=== PATIENT | female | born 1995 | race Caucasian/White ===

== ENCOUNTER → 2023-05-28 06:34 | Day surgery (SDC) | payer MEDICARE, OTHER, SELFPAY ==
[2023-05-28 12:09] VITALS: BMI 58.0
[2023-05-28 12:15] VITALS: BP 144/102
[2023-05-28 14:16] VITALS: BP 152/88
[2023-05-28 14:30] VITALS: BP 147/92
[2023-05-28 14:45] VITALS: BP 148/91
== END ==
LOC: SDS 06:34
PROVIDERS: ATTENDING PHYSICIAN Internal Medicine Gastroenterology
DX: D50.0 Iron deficiency anemia secondary to blood loss (chronic) (principal); K64.0 First degree hemorrhoids; K22.89 Other specified disease of esophagus; K29.50 Unspecified chronic gastritis without bleeding
CPT/HCPCS: 45378; 43239; 88305; 88342

== ENCOUNTER 2023-06-03 10:46 | Emergency (ER) | payer MEDICARE, OTHER, SELFPAY ==
[2023-06-03 11:02] VITALS: BP 169/109
[2023-06-03 11:46] LABS: % Basophils 0.5 % (0-2); % Eosinophils 3.5 % (0-6); % Immature Granulocytes 0.7 % (0-0.5); % Lymphocytes 25.9 % (20.5-51.1); % Monocytes 6.1 % (1.7-9.3); % Neutrophils 63.3 % (42.2-75.2); Absolute Basophils 0.1 10^3/uL (0-0.2); Absolute Eosinophils 0.4 10^3/uL (0-0.7); Absolute Immature Granulocytes 0.1 10^3/uL (0-0.05); Absolute Lymphocytes 2.9 10^3/uL (1.2-3.4); Absolute Monocytes 0.7 10^3/uL (0.1-0.6); Absolute Neutrophils 7.2 10^3/uL (1.4-6.5); Hemoglobin 13.4 g/dL (12.0-16.0); Mean Corp Hgb Conc. 31.9 g/dL (33.0-37.0); Mean Corpuscular Hgb 26.9 pg (27.0-31.0); Mean Corpuscular Volume 84.3 fL (81.0-99.0); Mean Platelet Volume 9.2 fL (7.4-10.4); Nucleated Red Blood Cells % 0 %; Platelet Count 306 10^3/uL (130-400); Red Blood Cell Count 4.98 10^6/uL (4.20-5.40); Red Cell Dist. Width 15.3 % (11.5-14.5); White Blood Cell Count 11.3 10^3/uL (4.8-10.8)
[2023-06-03 12:07] LABS: ALT (SGPT) 83 U/L (0-35); AST (SGOT) 53 U/L (14-36); Albumin 4.5 g/dl (3.5-5.0); Alkaline Phosphatase 88 U/L (38-126); Blood Urea Nitrogen 9 mg/dl (7-17); Calcium 9.4 mg/dl (8.4-10.2); Carbon Dioxide 28 mmol/L (22-30); Chloride 105 mmol/L (98-107); Glucose 87 mg/dl (70-99); Potassium 3.9 mmol/L (3.5-5.1); Sodium 139 mmol/L (135-145); Total Bilirubin 0.6 mg/dl (0.2-1.3); Total Protein 7.5 g/dl (6.3-8.2); eGFR > 60.00
[2023-06-03 12:28] VITALS: BMI 59.8
[2023-06-03 12:30] VITALS: BP 127/71
--- NOTE | 2023-06-03 12:32 | ED.GENMED ---
History of Present Illness
General
Chief Complaint: Abdominal Symptoms
Source: patient and family
Exam Limitations: none
Time Seen by Provider: 06/03/23 12:11
Travel History
Have you had any contact with someone who has COVID-19?: No
Do you have any symptoms of coronavirus? Fever > 100 degrees, chills, cough, shortness of breath, sore throat, loss of taste or smell, muscle aches, or headache?: No
History of Present Illness
History of Present Illness:
27-year-old female with a history of bipolar disorder who presents for right upper quadrant pain that started the day after her recent colonoscopy. Patient states she has had pain since Thursday. Pain has persisted and she called her primary care
doctor who advised her to call her GI doctor. GI recommended her to come here for evaluation. Patient reports pain is worse when she lays back. No vomiting. No fevers.
Past History
Past History
ED Past Medical History: Psychiatric (Bipolar disorder) and Other (Overdose, PTSD, Schizoaffective disorder, ADHD); Negative Asthma, HTN or NIDDM
ED Past Surgical History: Appendectomy and Orthopedic (ACL repair,)
Social History
Tobacco: Non-smoker
Alcohol: None
Drug: None
Personal: Single
Living: alone
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
Family History
Family History: Adopted
Phy Exam
Physical Exam
Physical Exam:
CONSTITUTIONAL Patient alert and oriented to person, place and time. Well-appearing. Vital signs reviewed. Obese
HEAD atraumatic, normocephalic.
EYES eyelids normal to inspection, Pupils equally round and reactive to light, Extraocular muscles intact, Conjunctiva normal, Sclera normal.
NECK normal range of motion, Trachea midline, no jugular venous distention.
RESPIRATORY CHEST No respiratory distress noted, Chest expansion equal, Bilateral breath sounds clear.
CARDIOVASCULAR regular rate and rhythm, Heart sounds normal.
ABDOMEN mild tenderness tenderness, Bowel sounds normal. No distention.
BACK normal inspection, no obvious deformities
UPPER EXTREMITY range of motion normal, Motor strength normal, no cyanosis, no edema.
LOWER EXTREMITY range of motion normal, Motor strength normal, no cyanosis, no edema.
NEURO Speech normal, No focal motor deficits, [place] coma scale 15, Memory normal, Cranial Nerves intact to screening exam.
SKIN skin warm, dry, and normal in color.
PSYCHIATRIC patient oriented to person place and time, flat affect
Course
Orders/Labs/Results
Orders:
Orders
06/03/23 11:38
Complete Blood Count/With Diff Urgent
Comprehensive Metabolic Panel Urgent
HCG, Serum Qualitative Screen Urgent
Comment: ADD ON
Lipase Urgent
Comment: ADD ON
06/03/23 12:32
Add On- LAB Urgent
Tests Added?: lipase
CT Abd/Pel (IV only)-DH only Urgent
Comment:
Reason For Exam: RUQ pain after colonoscopy
06/03/23 12:42
Add On- LAB Stat
Tests Added?: qual HCG
Abnormal Lab Results
06/03/23
11:38
WBC 11.3 H 10^3/uL
(4.8-10.8)
MCH 26.9 L pg
(27.0-31.0)
MCHC 31.9 L g/dL
(33.0-37.0)
RDW 15.3 H %
(11.5-14.5)
Abs Immat Gran (auto) 0.1 H 10^3/uL
(0-0.05)
Absolute Neuts (auto) 7.2 H 10^3/uL
(1.4-6.5)
Absolute Monos (auto) 0.7 H 10^3/uL
(0.1-0.6)
Immature Gran % 0.7 H %
(0-0.5)
Creatinine 0.5 L mg/dL
(0.6-1.0)
AST 53 H U/L
(14-36)
ALT 83 H U/L
(0-35)
06/03/23 11:38
06/03/23 11:38
Vital Signs
Initial and Last Documented VS:
Initial Vital Signs
Temp Pulse Resp BP Pulse Ox
97.8 F 87 16 169/109 98
06/03/23 11:02 06/03/23 11:02 06/03/23 11:02 06/03/23 11:02 06/03/23 11:02
Last Documented Vital Signs
Temp Pulse Resp BP Pulse Ox
97.8 F 87 16 127/71 97
06/03/23 11:02 06/03/23 11:02 06/03/23 11:02 06/03/23 12:30 06/03/23 13:15
MDM/Problems Addressed
MDM/Problems Addressed:
Abdominal pain
*Radiology
Radiology exam reviewed: preliminary read by ED provider (No gross free air) and radiology read reviewed
*Pulse Oximetry
Patient hypoxic: no
*Critical Care Note
Total Time (30-74mins, 75-104mins- exclusive of procedures): Not Applicable
Data Reviewed
Source: patient
Further Testing Considered But Not Given:
Consider right upper quadrant ultrasound CT negative.
Patient Management
Escalation/DeEscalation of care consider admission/obs:
CT negative for hepatic injury, perforation or spleen injury. I do feel she is safe for discharge and follow-up with GI. No gallstones noted by CT. If symptoms persist as outpatient, they could consider right upper quadrant ultrasound.
ED Attending Note
-
Portions of this chart may have been created with voice recognition software.� Occasional wrong word or��sound alike� substitutions may have occurred due to the inherent limitations of voice recognition software.
Discharge Plan
Departure
Patient Disposition: Home (Routine Discharge)
Date of Disposition: 06/03/23
Time of Disposition: 14:17
Patient with high blood pressure during this ER visit?: No
Discharge Problem:
Abdominal pain
Instructions: Abdominal Pain
Prescriptions:
No Action
prazosin 1 MG capsule
5 mg PO BID
Patient Comments:
pt does not remember mg
felodipine 5 mg Tablet Extended Release 24 Hr
5 mg PO DAILY
lamotrigine [Lamictal XR] 25 mg Tablet Extended Release 24hr
75 mg PO DAILY
clonazepam [Klonopin] 1 mg Tablet
1 mg PO BID
trazodone 100 mg Tablet
200 mg PO HS
lithium carbonate 600 mg Capsule
600 mg PO .QAM
lithium carbonate 600 mg Capsule
900 mg PO HS
gabapentin 100 mg Capsule
600 mg PO TID
paliperidone [Invega] 6 mg Tablet Extended Release 24 Hr
12 mg PO QPM
metoprolol succinate 100 mg Capsule,Sprinkle,Er 24hr
75 mg PO HS
Referrals:
Jennifer Frye DO [Family Provider] -
Activity Restrictions/Additional Instructions:
Please see your doctor and/or GI doctor in the next 3 to 5 days for follow-up and reevaluation. Return immediately for intractable or worsening pain, vomiting, fevers or any other concerns. If your symptoms persist, an outpatient ultrasound of
your gallbladder may be necessary
Interventions
Interventions:
*Risk Screen - Suicide Last Done: 06/03/23 12:20
*General Assessment Last Done: 06/03/23 12:28
*Neglect/Abuse Screening Last Done: 06/03/23 12:20
ED- Fall Risk Assessment Last Done: 06/03/23 12:20
*ED COVID-19 Vaccine History Last Done: 06/03/23 11:02
XO-Qqouqk-Jgmaulgnpf Assessment Last Done: 06/03/23 12:20
[2023-06-03 12:58] LABS: Lipase 86 U/L (23-300)
[2023-06-03 13:18] LABS: HCG, Serum Qualitative Screen Negative
== END 2023-06-03 14:49 | disposition home or self-care (01) ==
LOC: EMR 10:46
PROVIDERS: Emergency Medicine; EMERGENCY PHYSICIAN Emergency Medicine; FAMILY PHYSICIAN Family Medicine
DX: R10.9 Unspecified abdominal pain (principal); R10.11 Right upper quadrant pain
CPT/HCPCS: 99284; 74177; 80053; 83690; 84703; 85025; Q9967

== ENCOUNTER → 2023-11-11 14:25 | Outpatient (REF) | payer MEDICARE, OTHER, SELFPAY | LOC: RAD 14:25 | PROVIDERS: ATTENDING PHYSICIAN Family Medicine | DX: M54.10 Radiculopathy, site unspecified (principal) | CPT/HCPCS: 72110 ==

== ENCOUNTER 2023-12-03 12:46 | Emergency (ER) | payer MEDICARE, OTHER, SELFPAY ==
[2023-12-03 12:52] VITALS: BP 185/117
[2023-12-03 13:14] LABS: % Basophils 0.7 % (0-2); % Eosinophils 3.1 % (0-6); % Immature Granulocytes 0.4 % (0-0.5); % Lymphocytes 23.5 % (20.5-51.1); % Monocytes 6.5 % (1.7-9.3); % Neutrophils 65.8 % (42.2-75.2); Absolute Basophils 0.1 10^3/uL (0-0.2); Absolute Eosinophils 0.3 10^3/uL (0-0.7); Absolute Lymphocytes 2.1 10^3/uL (1.2-3.4); Absolute Monocytes 0.6 10^3/uL (0.1-0.6); Absolute Neutrophils 5.9 10^3/uL (1.4-6.5); Hematocrit 40.4 % (37.0-47.0); Hemoglobin 13.7 g/dL (12.0-16.0); Mean Corp Hgb Conc. 33.9 g/dL (33.0-37.0); Mean Corpuscular Hgb 29.6 pg (27.0-31.0); Mean Corpuscular Volume 87.3 fL (81.0-99.0); Mean Platelet Volume 9.1 fL (7.4-10.4); Nucleated Red Blood Cells % 0 %; Platelet Count 301 10^3/uL (130-400); Red Blood Cell Count 4.63 10^6/uL (4.20-5.40); Red Cell Dist. Width 12.6 % (11.5-14.5); White Blood Cell Count 8.9 10^3/uL (4.8-10.8)
[2023-12-03 13:23] LABS: INR 1.03; PT 13.5 Sec (11.4-14.6)
[2023-12-03 13:32] LABS: HCG, Serum Qualitative Screen Negative
[2023-12-03 13:37] LABS: ALT (SGPT) 140 U/L (0-35); AST (SGOT) 89 U/L (14-36); Albumin 4.7 g/dl (3.5-5.0); Alkaline Phosphatase 83 U/L (38-126); Blood Urea Nitrogen 9 mg/dl (7-17); Calcium 10.2 mg/dl (8.4-10.2); Carbon Dioxide 25 mmol/L (22-30); Chloride 103 mmol/L (98-107); Glucose 124 mg/dl (70-99); Potassium 3.9 mmol/L (3.5-5.1); Sodium 141 mmol/L (135-145); Total Bilirubin 0.8 mg/dl (0.2-1.3); Total Protein 7.3 g/dl (6.3-8.2); eGFR > 60.00
[2023-12-03 13:46] LABS: Troponin I 0.013 ng/ml
[2023-12-03 14:35] VITALS: BMI 60.7
[2023-12-03 14:36] VITALS: BP 155/102
[2023-12-03 15:00] VITALS: BP 152/95
--- NOTE | 2023-12-03 15:12 | ED.GENMED ---
History of Present Illness
<Lidya Moya PA-C - Last Filed: 12/03/23 20:26>
General
Chief Complaint: Chest Pain
Source: patient
Exam Limitations: none
Time Seen by Provider: 12/03/23 15:11
Nursing documentation reviewed up to this point in time: agreed with
History of Present Illness
History of Present Illness:
28-year-old female with a past medical history of PTSD, anxiety, depression, hypothyroidism, hypertension presenting to the emergency department today with concerns of bilateral chest pain. This started yesterday. Patient states that she noticed
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 Patient states that since then, the pain is elicited by movement. The pain is nonpleuritic. Currently at rest, she has no pain. She denies shortness of breath, palpitations, dizziness,
lightheadedness. Patient states that she has a history of a high heart rate and she states that her audit practice intern will frequently adjust her doses of metoprolol. Patient states that she has a history of high blood pressure and is managed on
amlodipine, metoprolol, clonidine. Patient also recently had a liver biopsy 4 days ago and father believes that this may be attributing to her symptoms. Patient denies abdominal pain, lower leg swelling, calf pain, erythema. Patient denies any
use of exogenous estrogen.
Past History
<NATI Garcia Last Filed: 12/03/23 20:26>
Past History
ED Past Medical History: Psychiatric (Bipolar disorder) and Other (Overdose, PTSD, Schizoaffective disorder, ADHD); Negative Asthma, HTN or NIDDM
ED Past Surgical History: Appendectomy and Orthopedic (ACL repair,)
Social History
Tobacco: Non-smoker
Alcohol: None
Drug: None
Personal: Single
Living: alone
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
Family History
Family History: Adopted
Review of Systems
<Lidya Moya PA-C - Last Filed: 12/03/23 20:26>
Review of Systems
All Other Systems: ROS reviewed and negative except as documented in HPI and ROS
Phy Exam
<Lidya Moya PA-C - Last Filed: 12/03/23 20:26>
Physical Exam
Physical Exam:
General: Patient is well appearing and in no acute distress; non-toxic
Skin: Warm and dry, no rashes or lesions
Head: Normocephalic, atraumatic
Eyes: Sclera non-icteric. EOMs intact. PERRLA.
Cardiac: Regular rate and rhythm, no murmurs. No tenderness palpation of external chest wall. No palpable crepitus.
Peripheral Vascular: No lower extremity swelling or edema, no erythema.
Pulm: Normal respiratory effort, no wheezes, rales, rhonchi.
Abdomen: No abdominal tenderness to palpation
Neuro: CN II-XII intact, no focal neurologic deficits.
Psychiatric: Appropriate mood and affect.
Scores
<Lidya Moya PA-C - Last Filed: 12/03/23 20:26>
Heart Score for Chest Pain Patients
STEMI patient?: No
History: Slightly or Non-Suspicious
ECG: Normal
Age: </= 45 years
Risk Factors: 1 or 2 Risk Factors
Troponin: </= Normal Limit
Heart Score for Chest Pain Patients: 1
Heart Score Risk: 2.5% MACE over next 6 weeks
PERC Rule Criteria
Age <50 years: Yes
HR <100 bpm: No
Room air oxygen sat >94%: Yes
History of DVT or PE: No
Recent trauma or surgery: No
Hemoptysis: No
Exogenous estrogen: No
Clinical signs suggestive of DVT: No
: No
Considered low risk for PE: Yes
PERC Score: 1
PE can be excluded by PERC: No
<Sahra Rayo DO - Last Filed: 12/03/23 17:00>
PERC Rule Criteria
PERC Score: 1
PE can be excluded by PERC: No
Course
<Lidya Moya PA-C - Last Filed: 12/03/23 20:26>
Orders/Labs/Results
Orders:
Orders
12/03/23 12:48
Electrocardiogram (*1) Urgent
Reason for Study: Chest Pain
EKG- Treatment ONCE
12/03/23 12:56
Test Result ONCE
12/03/23 13:03
Complete Blood Count/With Diff Urgent
Comprehensive Metabolic Panel Urgent
HCG, Serum Qualitative Screen Urgent
Prothrombin Time Urgent
TSH Reflex To Free T4 Urgent
Comment: TSH REFLEX ADDED ON BY FLOOR 3:10PM 12-03-23
Troponin I Urgent
12/03/23 15:12
Add On- LAB Urgent
Tests Added?: TSH reflex T4
12/03/23 15:51
Electrocardiogram (*1) Urgent
Reason for Study: Tachycardia
EKG- Treatment ONCE
Abnormal Lab Results
12/03/23
13:03
Glucose 124 H mg/dl
(70-99)
AST 89 H U/L
(14-36)
ALT 140 H U/L
(0-35)
12/03/23 13:03
12/03/23 13:03
Vital Signs
Initial and Last Documented VS:
Initial Vital Signs
Temp Pulse Resp BP Pulse Ox
99.1 F 116 18 185/117 98
12/03/23 12:52 12/03/23 12:52 12/03/23 12:52 12/03/23 12:52 12/03/23 12:52
Last Documented Vital Signs
Temp Pulse Resp BP Pulse Ox
99.1 F 99 22 162/84 97
12/03/23 12:52 12/03/23 16:00 12/03/23 16:00 12/03/23 16:00 12/03/23 16:00
<Sahra Perri, DO - Last Filed: 12/03/23 17:00>
Orders/Labs/Results
Orders:
Orders
12/03/23 12:48
Electrocardiogram (*1) Urgent
Reason for Study: Chest Pain
EKG- Treatment ONCE
12/03/23 12:56
Test Result ONCE
12/03/23 13:03
Complete Blood Count/With Diff Urgent
Comprehensive Metabolic Panel Urgent
HCG, Serum Qualitative Screen Urgent
Prothrombin Time Urgent
TSH Reflex To Free T4 Urgent
Comment: TSH REFLEX ADDED ON BY FLOOR 3:10PM 12-03-23
Troponin I Urgent
12/03/23 15:12
Add On- LAB Urgent
Tests Added?: TSH reflex T4
12/03/23 15:51
Electrocardiogram (*1) Urgent
Reason for Study: Tachycardia
EKG- Treatment ONCE
Abnormal Lab Results
12/03/23
13:03
Glucose 124 H mg/dl
(70-99)
AST 89 H U/L
(14-36)
ALT 140 H U/L
(0-35)
12/03/23 13:03
12/03/23 13:03
Vital Signs
Initial and Last Documented VS:
Initial Vital Signs
Temp Pulse Resp BP Pulse Ox
99.1 F 116 18 185/117 98
12/03/23 12:52 12/03/23 12:52 12/03/23 12:52 12/03/23 12:52 12/03/23 12:52
Last Documented Vital Signs
Temp Pulse Resp BP Pulse Ox
99.1 F 99 22 162/84 97
12/03/23 12:52 12/03/23 16:00 12/03/23 16:00 12/03/23 16:00 12/03/23 16:00
<Lidya Moya PA-C - Last Filed: 12/03/23 20:26>
MDM/Problems Addressed
Differential Diagnosis Includes:
ddx include ACS, PE, musculoskeletal sprain/strain, rib contusion, costochondritis
MDM/Problems Addressed:
Chest pain:
28-year-old female with a past medical history of PTSD, anxiety, depression, hypothyroidism, hypertension presenting to the emergency department today with concerns of bilateral chest pain. This started yesterday. Patient states that she noticed
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 Patient notes the pain comes on with any twisting or turning movement. Patient denies any shortness of breath. Patient does have tachycardia here in emergency department but on reevaluation,
tachycardia did resolve. Patient follows with a audit practice intern for this tachycardia and she is on metoprolol. Patient denies any DVT risk factors such as recent immobility, long distance travel, exogenous estrogen use. No indication for D-dimer at
this time. Patient symptoms likely represent musculoskeletal sprain/strain. Patient will be discharged to follow-up with her primary care provider and her audit practice intern. Patient declined chest x-ray at this time
Chronic conditions affecting care:
GERD, hypothyroidism, PTSD, anxiety, depression, hypertension, persistent tachycardia
<Lidya Moya PA-C - Last Filed: 12/03/23 20:26>
*Pulse Oximetry
Patient hypoxic: no
*EKG
Interpreted by ED Provider?: Yes
EKG Intrepretation Date: 12/03/23
Interpretation: abnormal
Comparison EKG: changes noted (T wave inversion in lateral leads )
Heart Rate: 109
Rate: tachycardiac
Rhythm: sinus
[place]: normal axis
Interval: normal interval and normal QT interval
QRS Pattern: normal QRS
Ischemia: T-wave inversion
*Industrial Trainer Interpretation
Rate: normal
Interpretation: normal
Heart Rate: 90
Rhythm: sinus
*Critical Care Note
Total Time (30-74mins, 75-104mins- exclusive of procedures): Not Applicable
Data Reviewed
Review of Other/Old Records Reveals: Records and Discharge Summary (My discharge summary [facility] to review)
Source: patient and records
<Lidya Moya PA-C - Last Filed: 12/03/23 20:26>
Patient Management
Escalation/DeEscalation of care consider admission/obs:
Admit not indicated, patient stable for discharge
ED Attending Note
<Lidya Moya PA-C - Last Filed: 12/03/23 20:26>
-
Portions of this chart may have been created with voice recognition software.� Occasional wrong word or��sound alike� substitutions may have occurred due to the inherent limitations of voice recognition software.
<Sahra Rayo DO - Last Filed: 12/03/23 17:00>
ED Attending Note
Patient seen and examined by attending physician: Yes
I performed the substantive portion of visit, reviewed & personally made and approve the management plan that is documented in note by myself or CAROLINE.: Yes
I performed a history and physical exam of patient and discussed management with resident, I reviewed resident's note and agree with documented findings and plan of care.: Yes
ED Attending Note:
28-year-old female with history of psychiatric disease and high blood pressure on metoprolol presenting to the emergency department for bilateral chest wall pain. Patient reports pain started yesterday after she lifted a heavy box. Pain is worse
with any movement or bending forward. Denies difficulty breathing. Denies any pain in the middle of her chest. Denies cough or fever. Denies known history of cardiac disease. Denies history of blood clot, recent surgery, recent travel,
exogenous estrogen. Vital signs on arrival are significant for mild tachycardia, however patient notes that this is an ongoing chronic issue. Heart rate improves to normal rate without intervention at rest.
On exam, patient is resting comfortably, no acute distress or discomfort with unremarkable cardiac and pulmonary exam. EKG obtained, sinus tachycardia without significant sign of ischemia. Symptoms appear consistent with musculoskeletal etiology.
Patient reports the pain is positional, provoked after lifting a box. Without present concern for ACS, minimal risk factors (HTN and obesity). Plan for laboratory analysis including troponin. Patient declining any pain medication at this time.
16:40 - Labs unremarkable. On reassessment, patient remains hemodynamically stable. Blood pressure has improved as well as heart rate. Feel stable for discharge with continued outpatient supportive therapy. Return precautions discussed and
patient verbalized understanding
Discharge Plan
Departure
Patient Disposition: Home (Routine Discharge)
Date of Disposition: 12/03/23
Time of Disposition: 16:37
Patient with high blood pressure during this ER visit?: Yes
Condition: Good
Discharge Problem:
Chest pain
Instructions: Chest pain, BLOOD PRESSURE
Prescriptions:
No Action
prazosin 1 MG capsule
5 mg PO BID
Patient Comments:
pt does not remember mg
felodipine 5 mg Tablet Extended Release 24 Hr
5 mg PO DAILY
lamotrigine [Lamictal XR] 25 mg Tablet Extended Release 24hr
75 mg PO DAILY
clonazepam [Klonopin] 1 mg Tablet
1 mg PO BID
trazodone 100 mg Tablet
200 mg PO HS
lithium carbonate 600 mg Capsule
600 mg PO .QAM
lithium carbonate 600 mg Capsule
900 mg PO HS
gabapentin 100 mg Capsule
600 mg PO TID
paliperidone [Invega] 6 mg Tablet Extended Release 24 Hr
12 mg PO QPM
metoprolol succinate 100 mg Capsule,Sprinkle,Er 24hr
75 mg PO HS
Referrals:
UNKNOWN - PT DOES,NOT KNOW [Unknown Provider] -
Activity Restrictions/Additional Instructions:
Please follow-up with your audit practice intern.
Please return to the emergency department should you experience any acute worsening of your symptoms, fevers or chills, shortness of breath, calf pain, redness or swelling in 1 leg, headache, or any other signs or symptoms concerning to you.
Interventions
Interventions:
*Risk Screen - Suicide Last Done: 12/03/23 12:52
*General Assessment Last Done: 12/03/23 12:52
*Neglect/Abuse Screening Last Done: 12/03/23 12:52
*ED COVID-19 Vaccine History Last Done: 12/03/23 14:38
*Nursing Disposition Last Done: 12/03/23 17:11
ED- Cardiac Assessment Last Done: 12/03/23 14:37
Discharge Date and Time
Discharge Date/Time: 12/03/23 17:12
Print Language: CZECH
[2023-12-03 16:00] VITALS: BP 162/84
[2023-12-03 21:37] LABS: TSH Reflex To Free T4 2.71 uIU/ml (0.47-4.68)
== END 2023-12-03 17:12 | disposition home or self-care (01) ==
LOC: EMR 12:46
PROVIDERS: Student in an Organized Health Care Education/Training Program; EMERGENCY PHYSICIAN Student in an Organized Health Care Education/Training Program; FAMILY PHYSICIAN Family Medicine
DX: R07.89 Other chest pain (principal); I10 Essential (primary) hypertension; F41.9 Anxiety disorder, unspecified; F32.A Depression, unspecified; F43.10 Post-traumatic stress disorder, unspecified; K21.9 Gastro-esophageal reflux disease without esophagitis
CPT/HCPCS: 99284; 80053; 84443; 84484; 84703; 85025; 85610; 93005

== ENCOUNTER 2024-01-11 06:59 | Outpatient (RCR) | payer MEDICARE, OTHER, SELFPAY | END 2024-01-11 23:59 | disposition home or self-care (01) | LOC: RPT 06:59 | PROVIDERS: ATTENDING PHYSICIAN Family Medicine | DX: M54.10 Radiculopathy, site unspecified (principal); M62.830 Muscle spasm of back; Z73.6 Limitation of activities due to disability | CPT/HCPCS: 97010; 97110; 97112; 97162 ==

== ENCOUNTER 2024-02-03 08:43 | Outpatient (RCR) | payer MEDICARE, OTHER, SELFPAY | END 2024-02-03 23:59 | disposition home or self-care (01) | LOC: RPT 08:43 | PROVIDERS: ATTENDING PHYSICIAN Family Medicine | DX: M54.10 Radiculopathy, site unspecified (principal); M62.830 Muscle spasm of back; Z73.6 Limitation of activities due to disability | CPT/HCPCS: 97110; 97112 ==

== ENCOUNTER 2024-02-08 13:12 | Emergency (ER) | payer MEDICARE, OTHER, SELFPAY ==
[2024-02-08 13:19] VITALS: BP 141/96
--- NOTE | 2024-02-08 14:08 | ED.GENMED ---
History of Present Illness
General
Chief Complaint: Crisis Evaluation
Source: patient
Exam Limitations: none
Time Seen by Provider: 02/08/24 13:59
History of Present Illness
History of Present Illness:
28-year-old female with history of depression bipolar borderline personality disorder presents with feelings of depression. Triage note states that she was having suicidal thoughts however she is denying this to me. She does not plan on hurting
herself. She and the plan of hurting others. She is coming by her father who is also her power of commonwealth attorney. She was hopeful to talk to the crisis department to develop coping strategies for the stress she is going through. She is denying any
other hallucinations or has no other complaints at this time.
Past History
Past History
ED Past Medical History: Psychiatric (Bipolar disorder) and Other (Overdose, PTSD, Schizoaffective disorder, ADHD); Negative Asthma, HTN or NIDDM
ED Past Surgical History: Appendectomy and Orthopedic (ACL repair,)
Social History
Tobacco: Non-smoker
Alcohol: None
Drug: None
Personal: Single
Living: alone
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
Family History
Family History: Adopted
Phy Exam
Physical Exam
Physical Exam:
General: Well-appearing female no acute respiratory distress
Psychiatric exam: Cooperative, blunted affect. Denying thoughts of harming self or others eh for safety currently with her father
Skin is warm no rash
Course
Orders/Labs/Results
Orders:
Orders
02/08/24 13:14
1:1 Observation - Suicide/ Violent Behavior As Directed
Crisis Consult Urgent
Reason for Consult: suicidal ideations
Vital Signs
Initial and Last Documented VS:
Initial Vital Signs
Temp Pulse Resp BP Pulse Ox
99.1 F 93 16 141/96 98
02/08/24 13:19 02/08/24 13:19 02/08/24 13:19 02/08/24 13:19 02/08/24 13:19
Last Documented Vital Signs
Temp Pulse Resp BP Pulse Ox
99.1 F 93 16 141/96 98
02/08/24 13:19 02/08/24 13:19 02/08/24 13:19 02/08/24 13:19 02/08/24 13:19
MDM/Problems Addressed
Differential Diagnosis Includes:
Patient patient here with goals to speak with crisis regarding coping strategies for stress she is going through. She is currently denying thoughts of harming herself or others to this provider. She expresses her desire to speak with [facility]. At this point no need for any further medical evaluation. Will be discharged to [facility]
*Critical Care Note
Total Time (30-74mins, 75-104mins- exclusive of procedures): Not Applicable
ED Attending Note
-
Portions of this chart may have been created with voice recognition software.� Occasional wrong word or��sound alike� substitutions may have occurred due to the inherent limitations of voice recognition software.
Discharge Plan
Departure
Patient Disposition: [facility]
Date of Disposition: 02/08/24
Time of Disposition: 14:10
Discharge Problem:
Anxiety
Instructions: Anxiety, Adult (DC)
Prescriptions:
No Action
prazosin 1 MG capsule
5 mg PO BID
Patient Comments:
pt does not remember mg
felodipine 5 mg Tablet Extended Release 24 Hr
5 mg PO DAILY
lamotrigine [Lamictal XR] 25 mg Tablet Extended Release 24hr
75 mg PO DAILY
clonazepam [Klonopin] 1 mg Tablet
1 mg PO BID
trazodone 100 mg Tablet
200 mg PO HS
lithium carbonate 600 mg Capsule
600 mg PO .QAM
lithium carbonate 600 mg Capsule
900 mg PO HS
gabapentin 100 mg Capsule
600 mg PO TID
paliperidone [Invega] 6 mg Tablet Extended Release 24 Hr
12 mg PO QPM
metoprolol succinate 100 mg Capsule,Sprinkle,Er 24hr
75 mg PO HS
Activity Restrictions/Additional Instructions:
Please seek further treatment through [facility] crisis
Interventions
Interventions:
*Risk Screen - Suicide Last Done: 02/08/24 13:19
*General Assessment Last Done: 02/08/24 14:07
*Neglect/Abuse Screening Last Done: 02/08/24 13:19
*ED COVID-19 Vaccine History Last Done: 02/08/24 14:07
ED-Psychological Assessment Last Done: 02/08/24 14:05
Discharge Date and Time
Print Language: IVORIAN
== END 2024-02-08 14:30 ==
LOC: EMR 13:12
PROVIDERS: EMERGENCY PHYSICIAN Emergency Medicine; FAMILY PHYSICIAN Family Medicine
DX: F41.9 Anxiety disorder, unspecified (principal); Z90.49 Acquired absence of other specified parts of digestive tract
CPT/HCPCS: 99285

== ENCOUNTER → 2024-04-12 13:15 | Outpatient (REF) | payer MEDICARE, OTHER, SELFPAY | LOC: DHSLP 13:15 | PROVIDERS: ATTENDING PHYSICIAN Internal Medicine; FAMILY PHYSICIAN Family Medicine | DX: G47.33 Obstructive sleep apnea (adult) (pediatric) (principal) | CPT/HCPCS: 95800 ==

== ENCOUNTER 2024-10-17 20:44 | Emergency (ER) | payer MEDICARE, OTHER, SELFPAY ==
[2024-10-17 20:47] VITALS: BP 178/109
[2024-10-17 23:53] VITALS: BP 124/85
--- NOTE | 2024-10-17 23:56 | ED.GENMED ---
History of Present Illness
General
Chief Complaint: Extremity Pain (non-traumatic)
Source: patient
Exam Limitations: none
Time Seen by Provider: 10/17/24 23:16
Nursing documentation reviewed up to this point in time: agreed with
History of Present Illness
History of Present Illness:
Note:
CHIEF COMPLAINT(S)
Intermittent right and left leg pain and swelling, present over the past month.
HISTORY OF PRESENT ILLNESS
The patient is a 28-year-old female with a pmh of HTN, GERD, anxiety who presents with concerns of intermittent leg pain and swelling over the past month. The patient reports that the swelling has occurred two to three times during this period, with
the most recent episode beginning last Thursday and worsening through Thursday. The right leg is predominantly affected, with the pain beginning in the foot and ankle, and recently extending to the mid-calf region. The patient describes the pain as
severe when standing, making it difficult to walk, though it feels better when sitting. Additionally, she notes her ankles feel weak and are painful, especially when descending stairs.
The patient recently returned from a trip to the [facility] and did not recall any specific injury but admits to frequent ankle rolling due to weakness. She attended her sisters wedding during the trip and recalls stepping awkwardly due to having to
hold up a long dress. She denies symptoms of redness or warmth in the swollen areas, but there is noticeable soreness and itching.
The patient consulted with her family doctor who expressed concern about a potential deep vein thrombosis (DVT) due to the recent travel and swelling. However, an ultrasound was conducted which ruled out a blood clot.
She also describes bilateral foot pain, specifically noting that standing for prolonged periods or leaning forward exacerbates the pain, particularly at the top and outside of the foot.
The patient has not used compression stockings but has been managing the condition with rest, elevation, and Epsom salt soaks. She has also been attempting weight loss and increasing her physical activity, causing a dilemma between walking for
health benefits versus managing the swelling as she feels like walking worsens the swelling.
CHRONIC MEDICAL CONDITIONS SIGNIFICANTLY AFFECTING CARE
History of knee replacement
SOCIAL DETERMINANTS AFFECTING HEALTH
The patients current efforts focus on weight loss and increased physical activity, leading to a consideration between exercise and the management of swelling due to pain and discomfort.
PHYSICAL EXAM
Nursing notes reviewed and vital signs reviewed.
General: Patient is well appearing and in no acute distress; non-toxic
Skin: Warm and dry, no rashes or lesions
Head: Normocephalic, atraumatic
Eyes: Sclera non-icteric. EOMs intact.
Cardiac: Regular rate and rhythm, no murmurs
Pulm: Normal respiratory effort, no wheezes, rales, or rhonchi
Peripheral vascular: bilateral lower extremity edema; 2+ DP and PT pulses bilaterally.
Musculoskeletal: Full rom of bilateral lower extremities. Mild tenderness to palpation in the right calf to palpation. Normal gait. No bony tenderness to palpation over the dorsum of the foot. Negative anterior drawer testing. No ligament laxity
with varus and valgus stress.
Neuro: CN II-XII intact, no focal neurologic deficits. Sensation intact.
Psychiatric: Appropriate mood and affect.
Summary:
Lower Extremities: No visible redness or signs of cellulitis. Pain localized to the mid-calf region of the right leg, exacerbated by standing. Ankles noted to be weak but ligamentously stable on examination. Painful areas identified on bilateral
feet upon palpation, especially with standing after prolonged sitting.
PLAN
1. Recommend use of compression stockings to manage leg swelling.
2. Encourage continued use of Epsom salt soaks and non-steroidal anti-inflammatory drugs for pain relief.
3. Advise obtaining [id number] insoles to provide supportive footwear and potentially alleviate some of the plantar fasciitis-like symptoms.
4. Encourage elevation of the legs when resting to assist with swelling reduction.
5. Suggest follow-up care with the primary physician for ongoing management and further evaluation if symptoms persist or worsen.
6. Provide the patient with a copy of the ultrasound results for her records.
DIFFERENTIAL DIAGNOSIS
The Differential Diagnosis includes, in no particular order and is not limited to:
1. Deep vein thrombosis (ruled out by ultrasound)
2. Muscle strain or tear
3. Plantar fasciitis
4. Tendinitis
5. Cellulitis (no signs observed)
6. Chronic venous insufficiency
7. Lymphedema
8. Bursitis
9. Arthritis
10. Peripheral neuropathy
MDM/DISPOSITION
28 y/o female presents to the ER today with concerns of multiple months of lower extremity pain and swelling. Yesterday the pain seemed to localize to the right calf. PCP concerned about DVT, ultrasound negative. Suspect dependent edema/calf sprain.
Discussed strict return precautions.
Past History
Past History
ED Past Medical History: Psychiatric (Bipolar disorder) and Other (Overdose, PTSD, Schizoaffective disorder, ADHD); Negative Asthma, HTN or NIDDM
ED Past Surgical History: Appendectomy and Orthopedic (ACL repair,)
Social History
Tobacco: Non-smoker
Alcohol: None
Drug: None
Personal: Single
Living: alone
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
Family History
Family History: Adopted
Review of Systems
Review of Systems
All Other Systems: ROS reviewed and negative except as documented in HPI and ROS
Phy Exam
Physical Exam
Physical Exam:
see hpi
Course
Orders/Labs/Results
Orders:
Orders
10/17/24 20:50
US Periph Venous LOWER Ext RT Urgent
Comment:
Reason For Exam: pain, swelling
10/17/24 23:44
Vital Signs- Treatment ONCE
Frequency: Once
Vital Signs
Initial and Last Documented VS:
Initial Vital Signs
Temp Pulse Resp BP Pulse Ox
98.3 F 102 20 178/109 99
10/17/24 20:47 10/17/24 20:47 10/17/24 20:47 10/17/24 20:47 10/17/24 20:47
Last Documented Vital Signs
Temp Pulse Resp BP Pulse Ox
98.3 F 78 14 124/85 97
10/17/24 20:47 10/17/24 23:53 10/17/24 23:53 10/17/24 23:53 10/17/24 23:56
*Pulse Oximetry
SaO2: 97
Oxygen Mode of Delivery: Room air
Patient hypoxic: no
*Critical Care Note
Total Time (30-74mins, 75-104mins- exclusive of procedures): Not Applicable
ED Attending Note
-
Portions of this chart may have been created with voice recognition software.� Occasional wrong word or��sound alike� substitutions may have occurred due to the inherent limitations of voice recognition software.
Discharge Plan
Departure
Patient Disposition: Home (Routine Discharge)
Patient with high blood pressure during this ER visit?: Yes
Condition: Good
Discharge Problem:
Dependent edema
Instructions: Swelling, BLOOD PRESSURE
Prescriptions:
No Action
prazosin 1 MG capsule
5 mg PO BID
Patient Comments:
pt does not remember mg
felodipine 5 mg Tablet Extended Release 24 Hr
5 mg PO DAILY
lamotrigine [Lamictal XR] 25 mg Tablet Extended Release 24hr
75 mg PO DAILY
clonazepam [Klonopin] 1 mg Tablet
1 mg PO BID
trazodone 100 mg Tablet
200 mg PO HS
lithium carbonate 600 mg Capsule
600 mg PO .QAM
lithium carbonate 600 mg Capsule
900 mg PO HS
gabapentin 100 mg Capsule
600 mg PO TID
paliperidone [Invega] 6 mg Tablet Extended Release 24 Hr
12 mg PO QPM
metoprolol succinate 100 mg Capsule,Sprinkle,Er 24hr
75 mg PO HS
Referrals:
Jennifer Frye DO [Family Provider, Family Practice]
Activity Restrictions/Additional Instructions:
Please follow-up with your primary care provider.
PLEASE RETURN TO THE EMERGENCY DEPARTMENT SHOULD YOU DEVELOP SHORTNESS OF BREATH, CHEST PAIN, INABILITY TO AMBULATE, LOSS OF SENSATION IN YOUR LOWER EXTREMITIES, LIGHTHEADEDNESS, DIZZINESS, OR ANY OTHER SIGNS OR SYMPTOMS WORRISOME TO YOU.
Interventions
Interventions:
*Risk Screen - Suicide Last Done: 10/17/24 20:50
*General Assessment Last Done: 10/17/24 20:50
*Neglect/Abuse Screening Last Done: 10/17/24 20:50
*Nursing Disposition Last Done: 10/18/24 00:00
Discharge Date and Time
Discharge Date/Time: 10/18/24 00:01
Print Language: THAI
== END 2024-10-18 00:01 | disposition home or self-care (01) ==
LOC: EMR 20:44
PROVIDERS: EMERGENCY PHYSICIAN Student in an Organized Health Care Education/Training Program; FAMILY PHYSICIAN Family Medicine
DX: R60.0 Localized edema (principal); I10 Essential (primary) hypertension; M79.604 Pain in right leg; M79.605 Pain in left leg
CPT/HCPCS: 99284; 93971

== ENCOUNTER 2024-11-08 07:25 | Outpatient (RCR) | payer MEDICARE, OTHER, SELFPAY | END 2024-11-08 23:59 | disposition home or self-care (01) | LOC: RPT 07:25 | PROVIDERS: ATTENDING PHYSICIAN Family Medicine | DX: I89.0 Lymphedema, not elsewhere classified (principal); R60.0 Localized edema; Z73.6 Limitation of activities due to disability | CPT/HCPCS: 97162; 97530; 97760 ==

== ENCOUNTER 2024-11-24 07:01 | Outpatient (RCR) | payer MEDICARE, OTHER, SELFPAY | END 2024-11-24 23:59 | disposition home or self-care (01) | LOC: RPT 07:01 | PROVIDERS: ATTENDING PHYSICIAN Family Medicine | DX: I89.0 Lymphedema, not elsewhere classified (principal); R60.0 Localized edema; Z73.6 Limitation of activities due to disability | CPT/HCPCS: 97530; 97763 ==

== ENCOUNTER → 2025-01-02 14:30 | Outpatient (REF) | payer MEDICARE, OTHER, SELFPAY | LOC: DHVS 14:30 | PROVIDERS: ATTENDING PHYSICIAN Family Medicine | DX: M79.671 Pain in right foot (principal); M79.672 Pain in left foot | CPT/HCPCS: 73630; 93922 ==